=== PATIENT | female | born 2000 | race Hispanic/Latino ===

== ENCOUNTER 2018-05-18 18:35 | Emergency (ER) | payer OTHER ==
[2018-05-18 19:34] LABS: Absolute Lymphocytes (CBC) 0.5 K/uL (0.7-4.9); Absolute Monocytes 0.4 K/uL (0.1-1.3); Absolute Neutrophil 11.9 K/uL (1.8-8.0); Basophils % 0.2 % (0-1.3); Eosinophils % 0.2 % (0-4.4); Hematocrit 38.7 % (36.0-45.0); Lymphocytes % 3.7 % (15.3-44.8); MCH 25.7 pg (27.0-35.0); MCV 78.5 fL (80-100); MPV 7.2 fL (7.6-11.3); Monocytes % 3.2 % (3.3-12.3); RBC Red Blood Cell Count 4.93 M/uL (3.86-4.86)
[2018-05-18] MEDS ORDERED: ACETAMINOPHEN 500 MG TAB ONE (19:34)
[2018-05-18] MEDS ORDERED: NA CHLORIDE 0.9% 1,000 ML ONE (19:35)
[2018-05-18 19:47] LABS: Potassium 3.2 mmol/L (3.5-5.1)
[2018-05-18 20:04] LABS: Blood Morphology Comment NOT SEEN (NOT SEEN); Platelet Estimate ADEQ; Urine White Blood Cell Casts OK
[2018-05-18] MEDS ORDERED: IBUPROFEN 400 MG TAB ONE (21:01)
--- NOTE | 2018-05-18 21:30 | EDPHYS ---
Physician Documentation [facility] Name: Zully Francis Age: 17 yrs Sex: Female : 2000 Arrival Date: 05/18/2018 Time: 18:38 Bed 15 Private MD: ED Physician Kodak Carmen HPI: 05/18 19:50 This 17 yrs old Female presents to ER via Wheelchair with complaints of kb Headache, Breast Problem. 19:50 The patient reports fever, that was measured at 104 degrees Fahrenheit, with an kb emergency department temperature of 102.5 degrees Fahrenheit. Onset: The symptoms/episode began/occurred this morning. Modifying factors: there are no obvious modifying factors. Associated signs and symptoms: Pertinent positives: headache, breast tenderness, swelling and redness (), Pertinent negatives: None. Severity of symptoms: At their worst the symptoms were moderate in the emergency department the symptoms are unchanged. The patient has not experienced similar symptoms in the past. The patient has not recently seen a physician. 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 - Social history:: Smoking status: Patient/guardian denies using tobacco. - Ebola Screening: : No symptoms or risks identified at this time. ROS: 19:51 Cardiovascular: Negative for chest pain, palpitations, and edema, Respiratory: Negative kb for shortness of breath, cough, wheezing, and pleuritic chest pain, Abdomen/GI: Negative for abdominal pain, nausea, vomiting, diarrhea, and constipation, MS/Extremity: Negative for injury and deformity. 19:51 Constitutional: Positive for fever. 19:51 Skin: Positive for erythema, swelling, of the right breast. Exam: 19:51 Constitutional: This is a well developed, well nourished patient who is awake, alert, kb and in no acute distress. Head/Face: Normocephalic, atraumatic. Cardiovascular: Regular rate and rhythm with a normal S1 and S2. No gallops, murmurs, or rubs. Normal PMI, no JVD. No pulse deficits. Respiratory: Lungs have equal breath sounds bilaterally, clear to auscultation and percussion. No rales, rhonchi or wheezes noted. No increased work of breathing, no retractions or nasal flaring. Abdomen/GI: Soft, non-tender, with normal bowel sounds. No distension or tympany. No guarding or rebound. No evidence of tenderness throughout. Back: No spinal tenderness. No costovertebral tenderness. Full range of motion. Skin: Warm, dry with normal turgor. Normal color with no rashes, no lesions, and no evidence of cellulitis. MS/ Extremity: Pulses equal, no cyanosis. Neurovascular intact. Full, normal range of motion. Neuro: Awake and alert, GCS 15, oriented to person, place, time, and situation. Cranial nerves II-XII grossly intact. Motor strength 5/5 in all extremities. Sensory grossly intact. Cerebellar exam normal. Normal gait. 19:51 Chest/axilla: Breasts: swelling, that is mild tenderness, that is moderate, of the right breast, mastitis noted to right breast. Vital Signs: 19:06 BP 109 / 86; Pulse 125; Resp 16; Temp 102.5(O); Pulse Ox 100% on R/A; Weight 70.31 kg; lp1 Height 5 ft. 2 in. (157.48 cm); Pain 8/10; 20:10 BP 121 / 85; Pulse 110 MON; Resp 16; Temp 102.8(O); Pulse Ox 100% on R/A; Pain 0/10; ds4 20:49 BP 104 / 68; Pulse 118; Resp 18; Temp 99.9(O); Pulse Ox 100% on R/A; Pain 0/10; rr5 21:49 BP 106 / 69; Pulse 108; Resp 16; Temp 99.1(O); Pulse Ox 99% on R/A; Pain 0/10; lp1 19:06 Body Mass Index 28.35 (70.31 kg, 157.48 cm) lp1 MDM: 19:13 Patient medically screened. kb 19:52 Data reviewed: vital signs, nurses notes. Data interpreted: Pulse oximetry: on room air kb is 100 %. Interpretation: normal. 19:52 Counseling: I had a detailed discussion with the patient and/or guardian regarding: the kb historical points, exam findings, and any diagnostic results supporting the discharge/admit diagnosis, lab results, the need for outpatient follow up, an OB/Gyne specialist, to return to the emergency department if symptoms worsen or persist or if there are any questions or concerns that arise at home. 21:28 ED course: Pt reports she feels much better. Headache resolved. Educated to take kb tylenol and ibuprofen as needed for fever. . 05/18 19:17 Order name: CBC with Diff; Complete Time: 20:05 kb 05/18 19:17 Order name: Basic Metabolic Panel; Complete Time: 19:48 kb 05/18 19:39 Order name: CBC Smear Scan; Complete Time: 20:05 EDMS 05/18 21:44 Order name: Urine Dipstick--Ancillary (enter results) ms 05/18 19:17 Order name: IV Start; Complete Time: 19:25 kb 05/18 20:05 Order name: Vital Signs; Complete Time: 20:10 kb 05/18 20:34 Order name: Urine Dipstick-Ancillary (obtain specimen); Complete Time: 21:49 kb Administered Medications: 19:31 Drug: Tylenol 1000 mg Route: PO; lp1 21:00 Follow up: Response: Temperature is decreased lp1 19:31 Drug: NS 0.9% 1000 ml Route: IV; Rate: 1000 ml; Site: right antecubital; lp1 20:45 Follow up: IV Status: Completed infusion; IV Intake: 1000ml lp1 20:27 Not Given (medication not available, physician informed): Dicloxacillin 500 mg PO once rr5 21:11 Drug: Ibuprofen 800 mg Route: PO; lp1 21:49 Follow up: Response: Temperature is decreased lp1 Disposition: 05/18/18 21:28 Discharged to Home. Impression: Nonpurulent mastitis associated with . - Condition is Stable. - Discharge Instructions: and Mastitis. - Prescriptions for Dicloxacillin 500 mg Oral Capsule - take 1 capsule by ORAL route every 6 hours for 10 days; 40 capsule. - Medication Reconciliation Form, Thank You Letter, Antibiotic Education, Prescription Opioid Use form. - Follow up: Emergency Department; When: As needed; Reason: Worsening of condition. Follow up: Private Physician; When: 2 - 3 days; Reason: Recheck today's complaints, Continuance of care, Re-evaluation by your physician. Signatures: Dispatcher [employer] EDMS Lerma Corrie, BREAKER TABLE WORKER-C BREAKER TABLE WORKER-Ckb Kathe Tobin, RN RN Gema Brewer, RN RN lp1 Raleigh Smalls RN rr5 Corrections: (The following items were deleted from the chart) 19:00 18:57 Immunization history: Adult Immunizations up to date, [facility] 18:59 Allergies: No Known Allergies; [facility] : 18:59 Home Meds: Risperdal Oral; [facility] 18:59 PMHx: None; [facility] 18:59 PSHx: None; [facility] 19: 18:59 Social history: Smoking status: Patient/guardian denies using tobacco, [facility] : 18:59 Ebola Screening: Patient negative for fever greater than or equal to 101.5 aj degrees Fahrenheit, and additional compatible Ebola Virus Disease symptoms Patient denies exposure to infectious person Patient denies travel to an Ebola-affected area in the 21 days before illness onset No symptoms or risks identified at this time 21:51 21:28 05/18/2018 21:28 Discharged to Home. Impression: Nonpurulent mastitis associated lp1 with . Condition is Stable. Discharge Instructions: and Mastitis. Prescriptions for Dicloxacillin 500 mg Oral Capsule - take 1 capsule by ORAL route every 6 hours for 10 days; 40 capsule. and Forms are Medication Reconciliation Form, Thank You Letter, Antibiotic Education, Prescription Opioid Use. Follow up: Emergency Department; When: As needed; Reason: Worsening of condition. Follow up: Private Physician; When: 2 - 3 days; Reason: Recheck today's complaints, Continuance of care, Re-evaluation by your physician. kb
--- NOTE | 2018-05-18 21:30 | ER ---
Nurse's Notes [facility] Name: Zully Francis Age: 17 yrs Sex: Female : 2000 Arrival Date: 05/18/2018 Time: 18:38 Bed 15 Private MD: Diagnosis: Nonpurulent mastitis associated with Presentation: 05/18 19:02 Presenting complaint: Patient states: Pain to right breast, hot to touch, hard on lp1 palpation; States fever of 104 at home, unsure of what to take due to current breast feeding; complaint of headache and nausea. Transition of care: patient was not received from another setting of care. Onset of symptoms was May 18, 2018 at 01:00. Risk Assessment: Do you want to hurt yourself or someone else? Patient reports no desire to harm self or others. Initial Sepsis Screen: Does the patient meet any 2 criteria? Temp <36.0*C (96.8*F)) or > 38.3*C (100.9*F). HR > 90 bpm. Care prior to arrival: None. 19:02 Method Of Arrival: Wheelchair lp1 19:02 Acuity: ENRRIQUE 3 lp1 21:50 Initial Sepsis Screen: Does the patient have a suspected source of infection? Yes: Skin lp1 breakdown/wound. 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 - Social history:: Smoking status: Patient/guardian denies using tobacco. - Ebola Screening: : No symptoms or risks identified at this time. Screenin:06 Abuse screen: Denies threats or abuse. Denies injuries from another. Nutritional lp1 screening: No deficits noted. Tuberculosis screening: No symptoms or risk factors identified. Fall Risk None identified. Assessment: 19:06 General: Appears uncomfortable, Behavior is appropriate for age. Pain: Complains of lp1 pain in right breast Pain currently is 8 out of 10 on a pain scale. Quality of pain is described as burning, pressure, Pain began gradually, Also complains of nausea. Neuro: Level of Consciousness is awake, alert, obeys commands, Oriented to person, place, time, situation, Reports headache in right in left parietal area. Cardiovascular: Patient's skin is warm and dry. Respiratory: Respiratory effort is even, unlabored. GI: No deficits noted. : No deficits noted. EENT: No deficits noted. Derm: Skin temperature is Right breast hot to touch, tender on palpation. Musculoskeletal: No deficits noted. 20:00 Reassessment: Patient and/or family updated on plan of care and expected duration. Pain rr5 level reassessed. Patient is alert, oriented x 3, equal unlabored respirations, skin warm/dry/pink. Patient states feeling better. Patient states symptoms have improved. 21:11 Reassessment: Patient appears in no apparent distress at this time. Patient is alert, lp1 oriented x 3, equal unlabored respirations, skin warm/dry/pink. Patient denies pain at this time. Patient states feeling better. Vital Signs: 19:06 BP 109 / 86; Pulse 125; Resp 16; Temp 102.5(O); Pulse Ox 100% on R/A; Weight 70.31 kg; lp1 Height 5 ft. 2 in. (157.48 cm); Pain 8/10; 20:10 BP 121 / 85; Pulse 110 MON; Resp 16; Temp 102.8(O); Pulse Ox 100% on R/A; Pain 0/10; ds4 20:49 BP 104 / 68; Pulse 118; Resp 18; Temp 99.9(O); Pulse Ox 100% on R/A; Pain 0/10; rr5 21:49 BP 106 / 69; Pulse 108; Resp 16; Temp 99.1(O); Pulse Ox 99% on R/A; Pain 0/10; lp1 19:06 Body Mass Index 28.35 (70.31 kg, 157.48 cm) lp1 ED Course: 18:38 Patient arrived in ED. mr 18:59 Triage completed. aj 19:06 Arm band placed on left wrist. lp1 19:08 Patient has correct armband on for positive identification. Placed in gown. Bed in low lp1 position. Pulse ox on. NIBP on. 19:12 Corrie Lerma FNP-C is PHCP. kb 19:12 Kodak Carmen MD is Attending Physician. kb 19:20 Inserted saline lock: 20 gauge in right antecubital area, using aseptic technique. ds4 Blood collected. 19:28 Basic Metabolic Panel Sent. ds4 19:28 CBC with Diff Sent. ds4 19:41 Basic Metabolic Panel Sent. ds4 19:41 CBC with Diff Sent. ds4 19:41 CBC Smear Scan Sent. ds4 19:45 Raleigh Smalls, RN is Primary Nurse. rr5 21:50 No provider procedures requiring assistance completed. IV discontinued, No lp1 redness/swelling at site. Pressure dressing applied. Administered Medications: 19:31 Drug: Tylenol 1000 mg Route: PO; lp1 21:00 Follow up: Response: Temperature is decreased lp1 19:31 Drug: NS 0.9% 1000 ml Route: IV; Rate: 1000 ml; Site: right antecubital; lp1 20:45 Follow up: IV Status: Completed infusion; IV Intake: 1000ml lp1 20:27 Not Given (medication not available, physician informed): Dicloxacillin 500 mg PO once rr5 21:11 Drug: Ibuprofen 800 mg Route: PO; lp1 21:49 Follow up: Response: Temperature is decreased lp1 Intake: 20:45 IV: 1000ml; Total: 1000ml. lp1 Outcome: 21:28 Discharge ordered by . kb 21:50 Discharged to home ambulatory, with significant other. lp1 21:50 Condition: good 21:50 Discharge instructions given to patient, Instructed on discharge instructions, follow up and referral plans. medication usage, Demonstrated understanding of instructions, follow-up care, medications, Prescriptions given X 1. 21:51 Patient left the ED. lp1 Signatures: Corrie Lerma, OFFICE BOOKKEEPER-C OFFICE BOOKKEEPER-CkKathe Garcia RN RN bishop Resendiz Isabella BrewerGema, RN RN lp1 Gabriel Lora ds4 Raleigh Smalls, RN RN rr5 Corrections: (The following items were deleted from the chart) 19:00 18:57 Presenting complaint: Mother states: "He's been kind of manic for 4 days and goes aj in and out of a catatonic state." Patient is awake and alert but refusing to speak in triage aj 19:00 18:57 Transition of care: patient was not received from another setting of care. [facility] 19:00 18:57 Onset of symptoms was May 18, 2018 [facility] 18:57 Initial Sepsis Screen: Does the patient meet any 2 criteria? No. Patient's initial sepsis screen is negative. Does the patient have a suspected source of infection? No. Patient's initial sepsis screen is negative. 18:57 Care prior to arrival: None. [facility] :57 Method Of Arrival: Ambulatory [facility] 57 Acuity: ENRRIQUE 2 [facility] 18:57 Immunization history: Adult Immunizations up to date, [facility] 18:59 Allergies: No Known Allergies; [facility] 18:59 Home Meds: Risperdal Oral; [facility] 18:59 PMHx: None; [facility] 18:59 PSHx: None; [facility] 18:59 Social history: Smoking status: Patient/guardian denies using tobacco, [facility] 18:59 Ebola Screening: Patient negative for fever greater than or equal to 101.5 aj degrees Fahrenheit, and additional compatible Ebola Virus Disease symptoms Patient denies exposure to infectious person Patient denies travel to an Ebola-affected area in the 21 days before illness onset No symptoms or risks identified at this time 19:06 Pain: Complains of pain in right breast Pain currently is 8 out of 10 on a pain lp1 scale. Quality of pain is described as burning, pressure, Pain began gradually, lp1 : 19:06 Neuro: Level of Consciousness is awake, alert, obeys commands, Oriented to lp1 person, place, time, situation, lp1
[2018-05-18 23:26] LABS: Urine Blood NEGATIVE (NEG); Urine Glucose NEGATIVE (NEG); Urine Protein NEGATIVE (NEG); Urine pH 5.5 (5.0-7.0)
== END 2018-05-18 21:51 | disposition home or self-care (01) ==
LOC: ER 18:35
DX: O91.23 Nonpurulent mastitis associated with lactation (principal); Z88.6 Allergy status to analgesic agent
CPT/HCPCS: 36415; 80048; 81003; 85025; 96360; 99284; J7030